=== PATIENT | male | born 1990 | race African-American/Black ===

== ENCOUNTER 2017-07-13 17:23 | Emergency (ER) | payer SELFPAY | END 2017-07-13 17:31 | disposition left against medical advice (07) | LOC: ER 17:23 | DX: R06.02 Shortness of breath (principal); Z53.21 Procedure and treatment not carried out due to patient leaving prior to being seen by health care provider ==

== ENCOUNTER 2017-07-13 17:49 | Emergency (ER) | payer SELFPAY | END 2017-07-13 18:34 | disposition home or self-care (01) | LOC: ER 17:49 | DX: F41.9 Anxiety disorder, unspecified (principal); F12.10 Cannabis abuse, uncomplicated; F14.10 Cocaine abuse, uncomplicated | CPT/HCPCS: 99281 ==